=== PATIENT | male | born 1990 | race Caucasian/White ===

== ENCOUNTER 2021-06-10 17:25 | Inpatient (IN) | payer OTHER ==
[~2021-06-10] VITALS: Ht 175.3 cm; Wt 86.0 kg
[2021-06-10] MEDS ORDERED: IBUP-1022 PO (17:36)
[2021-06-10] MEDS ORDERED: ELIQ5TAB PO (17:36)
[2021-06-10] MEDS ORDERED: OCUF0.25 OU (17:39)
[2021-06-10] MEDS: OFLOXACIN 0.3 % (OCUFLOX) OPTH SOL 5ML OU SCH (21:00)
[2021-06-10] MEDS ORDERED: NS 1,000 ML IV ONE (21:50)
[2021-06-10] MEDS ORDERED: ACETAMINOPHEN 500 MG TAB PO ONE (21:55)
[2021-06-10 22:28] LABS: BASO # 0.1 10^3/uL (0.0-0.2); BASO % 0.6 % (0.0-1.0); EOS # 0.1 10^3/uL (0.0-0.5); HEMATOCRIT 48.1 % (42.0-52.0); HEMOGLOBIN 16.1 g/dl (13.5-17.5); LYMPH % 10.1 % (24.0-44.0); MEAN CORPUSCULAR HEMOGLOBIN 29.2 pg (27.0-33.0); MEAN CORPUSCULAR HGB CONC 33.5 g/dl (32.0-36.5); MEAN CORPUSCULAR VOLUME 87.3 fl (80.0-96.0); MONO # 0.9 10^3/uL (0.0-0.8); MONO % 9.5 % (2.0-8.0); NEUTROPHILS # 7.8 10^3/uL (1.5-8.5); NEUTROPHILS % 78.5 % (36.0-66.0); PLATELET COUNT, AUTOMATED 250 10^3/uL (150-450); RED BLOOD COUNT 5.51 10^6/uL (4.30-6.10); WHITE BLOOD COUNT 9.9 10^3/uL (4.0-10.0)
[2021-06-10] MEDS ORDERED: ISOVUE-370 76% 100ML VIAL As Ordered ONE (22:32)
[2021-06-10 22:39] LABS: INR 0.91; PROTHROMBIN TIME 12.7 SECONDS (12.7-14.5)
[2021-06-10 22:41] LABS: D-DIMER QUANT 1981.35 ng/ml (<500)
[2021-06-10 22:55] LABS: ALBUMIN 3.5 GM/DL (3.2-5.2); ALT/SGPT 143 U/L (12-78); BILIRUBIN,DIRECT 0.1 MG/DL (0.0-0.2); BILIRUBIN,TOTAL 0.6 MG/DL (0.2-1.0); CK-MB VALUE MASS < 1.0 NG/ML (<3.6); CPK CREATINE PHOSPHOKINASE 66 U/L (39-308); MB/CK RELATIVE INDEX 1.52 (< OR =4); NT-PRO BNP 64 PG/ML (<125); TOTAL PROTEIN 7.7 GM/DL (6.4-8.2); TROPONIN I < 0.02 NG/ML (< 0.10)
--- NOTE | 2021-06-10 23:27 | REPVR ---
PROCEDURE INFORMATION: Exam: CTA Chest with Contrast Exam date and time: 06/10/21 (10:39pm) Age: 31 years old Clinical indication: SOB. Angina. Pleuritic chest pain. History of pulmonary embolism. TECHNIQUE: Imaging protocol: Computed tomographic angiography of the chest with contrast. 3D rendering (Not supervised by radiologist): MIP and/or 3D reconstructed images were created by the technologist. Radiation optimization: All CT scans at this facility use at least one of these dose optimization techniques: automated exposure control; mA and/or kV adjustment per patient size (includes targeted exams where dose is matched to clinical indication); or iterative reconstruction. Contrast material: Isovue 370 Contrast volume: 75 ml Contrast route: IV COMPARISON: No relevant prior studies available FINDINGS: Pulmonary arteries: This is a slightly suboptimal bolus study for complete pulmonary embolism evaluation due to inadequate opacification of the pulmonary arteries and cardiac motion artifacts. The CT density of the enhanced main pulmonary artery = 181 HU. The desired level of enhancement is > 200 HU. Though suboptimal, bilateral pulmonary emboli are strongly suspected. Clot is suspected in the distal right main pulmonary artery, and in bilateral lower lobe arterial branches. Aorta: Unremarkable. No aortic aneurysm. No aortic dissection. Lungs: Small focal patchy infiltrate, anterior right lung base. No masses. Pleural spaces: Unremarkable. No pneumothorax. No pleural effusions. Heart: Unremarkable. No cardiomegaly. No pericardial effusion. Lymph nodes: Unremarkable. No enlarged lymph nodes. Bones/joints: Unremarkable. No acute fracture. Soft tissues: Unremarkable. Upper abdomen: Splenomegaly. IMPRESSION: Bilateral acute pulmonary emboli are likely. The study is not fully optimal, but bilateral emboli are likely visualized (see comments above). Small patchy infiltrate, anterior RLL. Splenomegaly. Electronically signed by: Faustina Lemus On 06/10/2021 23:26:43 PM
[2021-06-10] MEDS ORDERED: HOME MED LIST COMPLETE! XX SCH (23:40)
[2021-06-10] MEDS ORDERED: HEPARIN SOD (PORCINE) 5000UNITS/ML 1ML VIAL/SYRINGE IV ONE (23:40)
[2021-06-10] MEDS ORDERED: HEPARIN DRIP 25,000 UNITS in IV 1 EA IV SCH (23:40)
[2021-06-11 00:04] LABS: MONO REFLEX EBV COMP NEGATIVE (NEGATIVE)
[2021-06-11] MEDS ORDERED: ACETAMINOPHEN TAB 650MG DOSE (2X325MG) PO PRN (00:10)
[2021-06-11 00:16] LABS: HEMOGLOBIN A1c 10.4 %
--- NOTE | 2021-06-11 01:12 | REPVR ---
PROCEDURE INFORMATION: Exam: US Duplex Lower Extremity Veins, Bilateral Exam date and time: 06/10/2021 12:23 AM Age: 31 years old Clinical indication: Abnormal findings; Abnormal imaging study of limbs; CT chest; CT angio; Additional info: Pulmonary emboli, RO dvt TECHNIQUE: Imaging protocol: Real-time duplex ultrasound of the extremities with 2-D winters scale, color Doppler flow and spectral waveform analysis with image documentation. Complete exam focused on the bilateral lower extremity veins. COMPARISON: No relevant prior studies available. FINDINGS: Right deep veins: Unremarkable. The common femoral, femoral, proximal profunda femoral and popliteal veins are patent without thrombus. Normal Doppler waveforms. Normal compressibility and/or augmentation response. Right superficial veins: Saphenofemoral junction is patent without thrombus. Left deep veins: Left common femoral vein is patent. Nonocclusive thrombus in the left femoral in the mid and distal thigh and popliteal vein. Visualized left posterior tibial vein is patent. Left peroneal vein is not visualized. Left superficial veins: Saphenofemoral junction is patent without thrombus. Soft tissues: Unremarkable. IMPRESSION: 1. Nonocclusive thrombus in the left femoral in the distal thigh and popliteal vein 2. No evidence of deep vein thrombosis in the right lower extremity. Electronically signed by: Rey Flores On 06/11/2021 01:12:00 AM
--- NOTE | 2021-06-11 01:25 | HPEPDOC ---
General Date of Admission 06/11/21 Date of Service: Jun 11, 2021 Chief Complaint Cough History of Present Illness Mr. Ruiz is a 31-year-old male with significant history of ankle fracture August 2020 and subsequent DVT/PE in 2020 who arrives with complaints of shortness of breath. Patient reports that he has had URI type symptoms for the past 10 days and self treated until 5 days ago when he was noted to have some eye involvement and worsening head congestion. Patient reports at that time he was treated for an eye infection with eyedrops and that cleared up but unfortunately his congestion postnasal drip sore throat and cough worsened to cough, fever and shortness of breath. Patient notes right back pain as well which she attributes to coughing. 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 He reports that he has been around old and new insulation in this attic and it is very min patient did describe sensation of dizziness/lightheadedness with coughing fits. He has been taking NyQuil and ibuprofen at home to no avail. Home Medications Scheduled Enoxaparin Sodium (Lovenox) 40 Mg/0.4 Ml Syringe, 90 MG SC Q12H Insulin Detemir (Levemir Flextouch) 100 Unit/1 Ml Insuln.pen, 15 UNIT SC QPM Levofloxacin (Levofloxacin) 750 Mg Tablet, 750 MG PO DAILY Allergies Coded Allergies: No Known Allergies (Unverified , 06/10/21) Past Medical History Medical History DVT left leg and PE 2020 Surgical History Appendectomy 2006, left ankle fracture with hardware repair 2019 Family History Significant Family History: No pertinent family hx Denies family history of clotting disorders or DVT or PE Social History * Smoker: Denies Alcohol: rarely Drugs: denies Recent Travel/Sick Contacts: Reports: Recent travel (Patient visiting from [place] for work. 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 Dyspnea, Lt Headedness Gastrointestinal: Denies: Nausea, Vomiting, Abdominal Pain, Diarrhea Genitourinary: Denies: Dysuria, Frequency, Incontinence, Retention Hematologic: Denies: Bruising, Bleeding Excessively Musculoskeletal: Reports: Back Pain; Denies: Neck Pain, Joint Pain, Muscle Pain, Spasms Neurological: Denies: Weakness, Numbness, Change in speech, Confusion Psych: Reports: Mood Normal; Denies: Depression, Memory Issues Physical Examination General Exam: Positive: Alert, No Acute Distress Eye Exam: Positive: PERRLA, Conjunctiva & lids normal, EOMI; Negative: Sclera icteric ENT Exam: Positive: Atraumatic, Mucous membr. moist/pink, Pharynx Normal Neck Exam: Positive: Supple; Negative: JVD, thyromegaly Chest Exam: Positive: Normal air movement, Other (RLL diminished ) Heart Exam: Positive: Rate Normal, Regular Rhythm, Normal S1, Normal S2; Negative: Murmurs, Rubs Telemetry: Positive: Sinus, Tachycardia Abdomen Exam: Positive: Normal bowel sounds, Soft; Negative: Tenderness, Hepatospenomegaly Extremity Exam: Positive: Normal pulses; Negative: Clubbing, Cyanosis, Edema Skin Exam: Positive: Nl turgor and temperature; Negative: Breakdown, Lesion Neuro Exam: Positive: Normal Gait, Normal Speech, Cranial Nerves 3-12 NL, Reflexes 2+ Psych Exam: Positive: Mental status NL, Mood NL, Oriented x 3 Other physical findings tenderness R posterior ribs Vital Signs Vital Signs Date Time Temp Pulse Resp B/P (MAP) Pulse Ox O2 Delivery O2 Flow Rate FiO2 06/10/21 23:45 97.2 108 18 175/87 (116) 96 Room Air Laboratory Data Labs 24H Laboratory Tests 2 06/10/21 21:49: Immature Granulocyte % (Auto) 0.3, Neutrophils (%) (Auto) 78.5H, Lymphocytes (%) (Auto) 10.1L, Monocytes (%) (Auto) 9.5H, Eosinophils (%) (Auto) 1.0, Basophils (%) (Auto) 0.6, Neutrophils # (Auto) 7.8, Lymphocytes # (Auto) 1.0L, Monocytes # (Auto) 0.9H, Eosinophils # (Auto) 0.1, Basophils # (Auto) 0.1, Nucleated Red Blood Cells % (auto) 0.0, Prothrombin Time 12.7, Prothromb Time International Ratio 0.91, D-Dimer, Quantitative 1981.35H, Total Bilirubin 0.6, Direct Bilirubin 0.1, Aspartate Amino Transf (AST/SGOT) 32, Alanine Aminotransferase (ALT/SGPT) 143H, Alkaline Phosphatase 239H, Total Creatine Kinase 66, Creatine Kinase MB < 1.0, Creatine Kinase MB Relative Index 1.52, Troponin I < 0.02, UX-Uxz-Q-Type Natriuretic Peptide 64, Total Protein 7.7, Albumin 3.5, Albumin/Globulin Ratio 0.8, Monoscreen NEGATIVE 06/10/21 21:56: Estimated Mean Plasma Glucose 252H, Hemoglobin A1c 10.4 06/10/21 22:16: POC Glucose (Misc Panel) 277H, POC Sodium (Misc Panel) 138, POC Potassium (Misc Panel) 4.1, POC Chloride (Misc Panel) 102, POC Total CO2 (Misc Panel) 26.0, POC Blood Urea Nitrogen (Misc Panel 10, POC Ionized Calcium (Misc Panel) 5.2, POC Creatinine (Misc Panel) 0.9, POC Hematocrit (Misc Panel) 50.0 06/10/21 23:17: Lactic Acid Level 1.0 CBC/BMP Laboratory Tests 06/10/21 21:49 Microbiology Microbiology 06/10/21 Respiratory Virus Panel (PCR) (MARGARETTE) - Final, Complete 06/10/21 Blood Culture, Received Pending 06/10/21 Blood Culture, Received Pending Assessment/Plan 1. Right lower lobe pneumonia: Respiratory panel negative CT positive small right lower lobe infiltrate. Monitor respiratory status; Oxygen as needed to keep saturations greater than 93% Empiric coverage with Levaquin Symptomatic/supportive care-as needed breathing treatments and Mucinex A.m. labs, urine Legionella/pneumonia 2. Left lower extremity DVT and likely bilateral PE: CT chest questionable given suboptimal exam but likely bilateral PE. Ultrasound positive nonocclusive thrombus left femoral in the distal thigh and popliteal vein Patient recently completed Eliquis 6 months. -Bedrest -Heparin drip -Clotting factor lab work sent if lab can send blood from prior to initiation of heparin drip. -A.m. labs. -Echo given bilateral PE. -Consider OAC; for long-term Eliquis versus agent change such as Xarelto 3. Hyperglycemia: Patient denies history of diabetes however patient with elevated fasting glucose. A1c was completed and did show elevation at 10.4. Plan for blood glucose monitoring ACHS, Sliding scale insulin. New diabetic teaching. Consider oral antiglycemic's for discharge once patient is outside of contrast from CT risks. 4. Transaminitis: In setting of infection. Plan for hydration and a.m. labs. During course of admission patient did complain of nausea and increased right posterior rib pain. This may be referred pain of the gallbladder- will opt for CT abdomen pelvis without contrast. 5. Splenomegaly: As noted on CT. Patient denies any history. [place] negative. EBV send out. Consider differential CODE STATUS full code Disposition planning: Anticipate 2 midnight stay. Patient has to leave for work on -he will be traveling via plane to [place]. He will require documentation if unable to travel/work notice. Plan / VTE VTE Prophylaxis Ordered?: Yes JENNIFRE WEN NP Jun 11, 2021 00:18 EMILY MURRY MD Jun 18, 2021 02:41
[2021-06-11] MEDS: LevoFLOXacin IV 750 MG in IV 1 EA IV SCH (02:46)
[2021-06-11] MEDS: traMADol 50 MG TAB PO PRN ×2 (02:46→10:06)
[2021-06-11] MEDS ORDERED: MORPHINE 2 MG/ML 1ML VIAL (J2270) IV PRN ×2 (04:45→09:50)
[2021-06-11] MEDS: ONDANSETRON 4MG/2ML VIAL IV PRN ×2 (04:56→11:39)
[2021-06-11] MEDS ORDERED: IPRATROPIUM 0.5MG/ALBUTEROL 2.5MG INH SOL UD 3ML (DUONEB) NEB PRN (05:55)
[2021-06-11] MEDS: DICLOFENAC EPOLAMINE 1.3 % PATCH TOP SCH ×2 (06:26→17:41)
[2021-06-11] MEDS ORDERED: GLUCOSE 4GM CHEW TABLET PO PRN (06:30)
[2021-06-11] MEDS ORDERED: DEXTROSE 50% 50 ML SYRINGE IV PRN (06:30)
[2021-06-11] MEDS ORDERED: GLUCAGON INJ 1MG VIAL SC PRN (06:30)
[2021-06-11] MEDS ORDERED: ELIQ5TAB4 PO (07:27)
--- NOTE | 2021-06-11 07:31 | REPVR ---
PROCEDURE INFORMATION: Exam: CT Abdomen And Pelvis Without Contrast Exam date and time: 06/11/2021 7:05 AM Age: 31 years old Clinical indication: Nausea, elevated lfts, R back pain TECHNIQUE: Imaging protocol: Computed tomography of the abdomen and pelvis without contrast. Radiation optimization: All CT scans at this facility use at least one of these dose optimization techniques: automated exposure control; mA and/or kV adjustment per patient size (includes targeted exams where dose is matched to clinical indication); or iterative reconstruction. COMPARISON: CT ANGIO CHEST 06/10/2021 10:38 PM FINDINGS: Limitations: Limited by motion artifact. Lungs: Consolidation in the right middle lobe. Ground-glass opacity in the posterior basal right lower lobe. Lung nodule in the posterior basal left lower lobe measuring 7 mm. (Series 201, image 10). Liver: Fatty infiltration of the liver. Gallbladder and bile ducts: Normal. No calcified stones. No ductal dilation. Pancreas: Normal. No ductal dilation. Spleen: Moderate splenomegaly. Adrenal glands: Normal. No mass. Kidneys and ureters: Normal. No hydronephrosis. Stomach and bowel: Moderate stool in the colon. No abnormal bowel dilatation. No abnormal bowel wall thickening. Negative for colonic diverticulitis. Appendix: Status post appendectomy. Intraperitoneal space: Unremarkable. No free air. No significant fluid collection. Vasculature: Unremarkable. No abdominal aortic aneurysm. Lymph nodes: Multiple small mesenteric nodes. Urinary bladder: Unremarkable as visualized. Reproductive: Prostate is normal in size. Bones/joints: Mild degenerative changes of hips bilaterally. Soft tissues: Small umbilical hernia containing fat. There is no evidence of strangulation. IMPRESSION: 1. No CT findings to suggest source of right flank pain in the abdomen. 2. Fatty infiltration of the liver. 3. Moderate splenomegaly. 4. Ground-glass opacities and consolidations as described. See recent CTA chest report. 5. Lung nodule in the left lower lobe. If the patient does not have known cancer, follow up should be based on clinical information because of the low risk of cancer in this age group. (Reference: Jarek) REFERENCES: Jarek Vargas et al. Guidelines for Management of Incidental Pulmonary Nodules Detected on CT Images: From the Fleischner Society 2017. Radiology. 2017;284(1):228-243. Electronically signed by: Rey Flores On 06/11/2021 07:31:26 AM
[2021-06-11] MEDS: HumaLOG INSULIN (NovoLOG) PER UNIT SC SCH ×4 (07:54→20:35)
[2021-06-11 08:11] LABS: BASO # 0.1 10^3/uL (0.0-0.2); BASO % 0.4 % (0.0-1.0); EOS % 0.1 % (0.0-3.0); HEMATOCRIT 45.2 % (42.0-52.0); HEMOGLOBIN 14.6 g/dl (13.5-17.5); LYMPH # 0.8 10^3/uL (1.5-5.0); MEAN CORPUSCULAR HEMOGLOBIN 28.5 pg (27.0-33.0); MEAN CORPUSCULAR HGB CONC 32.3 g/dl (32.0-36.5); MEAN CORPUSCULAR VOLUME 88.1 fl (80.0-96.0); MONO # 1.2 10^3/uL (0.0-0.8); NEUTROPHILS # 9.6 10^3/uL (1.5-8.5); NEUTROPHILS % 82.1 % (36.0-66.0); PLATELET COUNT, AUTOMATED 237 10^3/uL (150-450); RED BLOOD COUNT 5.13 10^6/uL (4.30-6.10); WHITE BLOOD COUNT 11.7 10^3/uL (4.0-10.0)
[2021-06-11 08:30] LABS: BLOOD UREA NITROGEN 11 MG/DL (7-18); CALCIUM LEVEL 9.2 MG/DL (8.5-10.1); CARBON DIOXIDE LEVEL 24 MEQ/L (21-32); CHLORIDE LEVEL 103 MEQ/L (98-107); CREATININE FOR GFR 1.02 MG/DL (0.70-1.30); GLOMERULAR FILTRATION RATE > 60.0 (>60); GLUCOSE, FASTING 254 MG/DL (70-100); NT-PRO BNP 39 PG/ML (<125); SODIUM LEVEL 137 MEQ/L (136-145)
[2021-06-11 08:33] LABS: AMYLASE 24 U/L (25-115); LIPASE 63 U/L (73-393)
[2021-06-11] MEDS ORDERED: HEPARIN DRIP 25,000 UNITS in IV 1 EA IV SCH (09:10)
[2021-06-11] MEDS ORDERED: HEPARIN SOD (PORCINE) 5000UNITS/ML 1ML VIAL/SYRINGE IV PRN (09:10)
[2021-06-11] MEDS: LACTOBACILLUS ACIDOPHILUS CAP (BACID) PO SCH (09:34)
[2021-06-11] MEDS: OFLOXACIN 0.3 % (OCUFLOX) OPTH SOL 5ML OU SCH ×3 (09:35→20:35)
[2021-06-11] MEDS: ENOXAPARIN 100MG/1ML SYRINGE (J1650 PER 10MG) SC SCH ×2 (09:35→20:35)
[2021-06-11] MEDS: SIMETHICONE 80MG CHEW TAB PO PRN (10:39)
[2021-06-11] MEDS: ACETAMINOPHEN 500 MG TAB PO SCH ×3 (11:36→20:37)
[2021-06-11 14:18] VITALS: BP 135/70
[2021-06-11] MEDS: IBUPROFEN 600MG TAB PO PRN (15:17)
[2021-06-11 15:30] VITALS: BP 171/89
[2021-06-11] MEDS ORDERED: ELIQ5TAB PO (15:58)
--- NOTE | 2021-06-11 16:11 | IPNPDOC ---
Subjective Date Seen The patient was seen on 06/11/21. Subjective Chief Complaint/HPI Mr. Ruiz is a 31 year old male with history of ankle fracture in 08/2020 and subsequent DVT?PE who presents with dyspnea and found to have another PE and DVT. This morning, he still feels short of breath. He also reports of flank pain which is most likely from the PE. Patient tells me that in the past, he was on Eliquis. I sent the Eliquis starter pack and his insurance covered it, but it would cost $103. Will try to send again, but not the starter pack. Objective Physical Examination General Exam: Positive: Alert, Cooperative Eye Exam: Positive: EOMI; Negative: Sclera icteric ENT Exam: Positive: Atraumatic Neck Exam: Positive: Supple Chest Exam: Positive: Clear to auscultation Heart Exam: Positive: Tachycardic, Regular Rhythm Abdomen Exam: Positive: Normal bowel sounds, Soft; Negative: Tenderness Extremity Exam: Negative: Edema Neuro Exam: Positive: Normal Speech Psych Exam: Positive: Mental status NL, Mood NL Assessment /Plan Assessment Mr. Ruiz is a 31 year old male with history of ankle fracture in 08/2020 and subsequent DVT?PE who presents with dyspnea and found to have another PE and DVT. Patient may need to be on life long anticoagulation vs a longer coarse of anticoagulation. Otherwise, will start with Lovenox since it is rapid acting and transition to orals if appropriate. Plan/VTE VTE Prophylaxis Ordered?: Yes Plan 1. Bilateral acute bilateral acute left lower extremity DVT May either be a continuation of his previous VTE or recurrence of VTE Hypercoagulable work-up pending Patient may need to be on a longer course of anticoagulation Sent Eliquis starter pack to pharmacy and it cost $103. We will try sending Eliquis as pills rather than started back Continue with full dose Lovenox Pain control with scheduled acetaminophen and as needed ibuprofen 2. Right lower lobe pneumonia Procalcitonin borderline at 0.25 Continue levofloxacin day 1 3. Diabetes mellitus Patient denies history of diabetes HbA1c elevated at 10.4 Functional insulin Patient will benefit from diabetic teaching 4. DVT prophylaxis On full dose Lovenox Disposition: Pending clinical improvement. Patient does not have any oxygen requirements. If pain is controlled, can consider discharge on oral meds. Eliquis sent to pharmacy to determine cost. VS, I&O, 24H, Fishbone Vital Signs/I&O Vital Signs Date Time Temp Pulse Resp B/P (MAP) Pulse Ox O2 Delivery O2 Flow Rate FiO2 06/11/21 15:30 98.0 113 20 171/89 (116) 90 Room Air Laboratory Data 24H LABS Laboratory Tests 2 06/10/21 21:49: Immature Granulocyte % (Auto) 0.3, Neutrophils (%) (Auto) 78.5H, Lymphocytes (%) (Auto) 10.1L, Monocytes (%) (Auto) 9.5H, Eosinophils (%) (Auto) 1.0, Basophils (%) (Auto) 0.6, Neutrophils # (Auto) 7.8, Lymphocytes # (Auto) 1.0L, Monocytes # (Auto) 0.9H, Eosinophils # (Auto) 0.1, Basophils # (Auto) 0.1, Nucleated Red Blood Cells % (auto) 0.0, Prothrombin Time 12.7, Prothromb Time International Ratio 0.91, D-Dimer, Quantitative 1981.35H, Total Bilirubin 0.6, Direct Bilirubin 0.1, Aspartate Amino Transf (AST/SGOT) 32, Alanine Aminotransferase (ALT/SGPT) 143H, Alkaline Phosphatase 239H, Total Creatine Kinase 66, Creatine Kinase MB < 1.0, Creatine Kinase MB Relative Index 1.52, Troponin I < 0.02, BS-Ogu-P-Type Natriuretic Peptide 64, Total Protein 7.7, Albumin 3.5, Albumin/Globulin Ratio 0.8, Monoscreen NEGATIVE 06/10/21 21:56: Estimated Mean Plasma Glucose 252H, Hemoglobin A1c 10.4 06/10/21 22:16: POC Glucose (Misc Panel) 277H, POC Sodium (Misc Panel) 138, POC Potassium (Misc Panel) 4.1, POC Chloride (Misc Panel) 102, POC Total CO2 (Misc Panel) 26.0, POC Blood Urea Nitrogen (Misc Panel 10, POC Ionized Calcium (Misc Panel) 5.2, POC Creatinine (Misc Panel) 0.9, POC Hematocrit (Misc Panel) 50.0 06/10/21 23:17: Lactic Acid Level 1.0 06/11/21 00:13: 06/11/21 07:48: Immature Granulocyte % (Auto) 0.4, Neutrophils (%) (Auto) 82.1H, Lymphocytes (%) (Auto) 7.0L, Monocytes (%) (Auto) 10.0H, Eosinophils (%) (Auto) 0.1, Basophils (%) (Auto) 0.4, Neutrophils # (Auto) 9.6H, Lymphocytes # (Auto) 0.8L, Monocytes # (Auto) 1.2H, Eosinophils # (Auto) 0.0, Basophils # (Auto) 0.1, Nucleated Red Blood Cells % (auto) 0.0, Activated Partial Thromboplast Time 38.3, Bedside Glucose (Misc Panel) 251H, Anion Gap 10, Glomerular Filtration Rate > 60.0, Lactic Acid Level 1.8, Calcium Level 9.2, EB-Ikf-C-Type Natriuretic Peptide 39, Amylase Level 24L, Lipase 63L, Procalcitonin 0.25 06/11/21 13:02: Activated Partial Thromboplast Time 42.7H 06/11/21 13:23: Bedside Glucose (Misc Panel) 315H CBC/BMP Laboratory Tests 06/10/21 21:49 06/11/21 07:48 Microbiology Microbiology 06/10/21 Respiratory Virus Panel (PCR) (MARGARETTE) - Final, Complete 06/10/21 Blood Culture, Received Pending 06/10/21 Blood Culture, Received Pending MK PIERCE DO Jun 11, 2021 16:11
[2021-06-11] MEDS ORDERED: XARE15TA PO (17:11)
[2021-06-11 18:00] VITALS: BP 130/82
--- NOTE | 2021-06-11 19:28 | ECGEPIP ---
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
[2021-06-11] MEDS ORDERED: guaiFENesin ER 600 MG TAB PO ONE (20:55)
[2021-06-11] MEDS: IPRATROPIUM 0.5MG/ALBUTEROL 2.5MG INH SOL UD 3ML (DUONEB) NEB SCH (21:16)
[2021-06-11 22:00] VITALS: BP 140/90
--- NOTE | 2021-06-11 22:01 | IPNPDOC ---
Text Note Date of Service The patient was seen on 06/11/21. NOTE Significant event. Patient seen at bedside in no acute distress but notably ill appearance. He is tolerating room air 94% mildly tachycardic heart rate 103, regular rhythm, re spiratory rate 20. Normotensive. He has noticeable rales bilateral lower lobes. Afebrile. Patient reports that he is unsure if his chest was hurting yesterday as he did experience flank pain and that could have been overshadowing the chest pain. As of now flank pain much improved but patient describes anterior chest pain 6 out of 10 described as tightness/sharpness. Also pleuritic increasing pain 8 out of 10 with inspiration. Pain is somewhat reproducible. He denies activity as exacerbating factor. No history of heart disease for himself or in his immediate family. Chest Pain patient with probable bilateral PEs: Echo completed given CT did not mention heart strain, but report not available yet: Opted for ekg, trop with exam. EKG reassuring. Trop pending. Given pleuritic in nature-likely costochondritis given clinical picture and patient coughing. Plan for ibuprofen, Mucinex, scheduled duonebs, IS. Consider steroids although patient at risk for hyperglycemia. Additional treatment plan discussion with patient of CT scan finding of LLL pulmonary nodule. Again, patient is non-smoker with no cancer history and no immediate cancer history in his family. He was encouraged to discuss the nodule with his PCP for best follow-up intervals and to be aware of this in future. He verbalized understanding Also, discussed patient's diabetic diagnosis given his elevated A1c. He reports that he does have a family history of grandfather with diabetes. Patient denies any polydipsia, polyphagia or polyuria. He does not report any A1c checks in the past with his PCP that he is aware of. His blood glucose is running in the 300 this evening. His diet had not been consistent carbohydrates and he is ill as noted this may be contributing. Did change to consistent carbohydrate diet. Given goal for patient to have successful discharge encourage diabetic teaching and written materials. Additionally, will begin Levemir 15 units subcu tonight with frequent Accu-Cheks to determine patient response. Given A1c greater than 8 patient discharge planning for insulin. 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 Will continue to monitor and adjust care plan accordingly. VS,Fishbone, I+O VS, Fishbone, I+O Laboratory Tests 06/10/21 21:49 06/11/21 07:48 Vital Signs Date Time Temp Pulse Resp B/P (MAP) Pulse Ox O2 Delivery O2 Flow Rate FiO2 06/11/21 18:00 97.4 93 20 130/82 (98) 94 Room Air JENNIFER WEN NP Jun 11, 2021 20:58
[2021-06-11] MEDS: LEVEMIR (INSULIN DETEMIR) 1 UNITS/0.01ML SC SCH (22:24)
[2021-06-12] MEDS: LevoFLOXacin IV 750 MG in IV 1 EA IV SCH (01:13)
[2021-06-12] MEDS: traMADol 50 MG TAB PO PRN ×2 (01:14→16:56)
[2021-06-12] MEDS: SIMETHICONE 80MG CHEW TAB PO PRN ×2 (01:17→11:50)
[2021-06-12] MEDS: ONDANSETRON 4MG/2ML VIAL IV PRN (01:35)
[2021-06-12] MEDS ORDERED: MORPHINE 2 MG/ML 1ML VIAL (J2270) IV ONE (01:45)
[2021-06-12] MEDS ORDERED: METOCLOPRAMIDE INJ 10MG/2ML VIAL (J2765 PER 1) IV PRN (01:45)
[2021-06-12] MEDS ORDERED: carisoprodoL 350 MG TAB PO PRN (02:10)
[2021-06-12 02:19] VITALS: BP 175/121
--- NOTE | 2021-06-12 03:50 | IPNPDOC ---
Text Note Date of Service The patient was seen on 06/12/21. NOTE Significant event. Asked to see pt given severe posterior right rib/flank pain. He is having difficulty taking deep breaths and actually desatted to 85% on RA requiring 2 L nasal cannula placement. He reports that he had been stretching out his pain medication. He endorses "spasming". Denies any hx of trauma to back or side. CT review mentioned no kidney stones. He is diminished right lower lobe and notably not taking deep breaths d/t pain reportedly. He is tachycardic 115 and hypertensive 172/111. 93% 2LNC RR26. He is physically burping and appears ill. He is exquisitely tender to touch of the right posterior rib however no deformity or rash appreciated. He is flushed in complexion generalized and warm to touch. Patient given morphine 4 mg in total. Given known RLL infiltrate and increased oxygen demand will obtain AM interval chest x-ray for now. Chest x-ray obtained and patient given Reglan. Patient thankfully soon after relaxed; likely morphine kicked in and he was able to fall asleep however he does remain tachycardic, on 2L NC. Pending x-ray for further interventions. WCTM. VS,Fishbone, I+O VS, Fishbone, I+O Laboratory Tests 06/11/21 07:48 Vital Signs Date Time Temp Pulse Resp B/P (MAP) Pulse Ox O2 Delivery O2 Flow Rate FiO2 06/12/21 02:56 105 24 96 Nasal Cannula 2.0 06/12/21 02:19 175/121 (139) 06/11/21 22:00 98.4 I&O- Last 24 Hours up to 6 AM 06/12/21 06:00 Intake Total 655 ml Output Total 1350 ml Balance -695 ml JENNIFER WEN NP Jun 12, 2021 03:04
--- NOTE | 2021-06-12 04:51 | REPVR ---
PROCEDURE INFORMATION: Exam: XR Chest Exam date and time: 06/12/2021 2:31 AM Age: 31 years old Clinical indication: Shortness of breath; Additional info: Inc o2 demand TECHNIQUE: Imaging protocol: XR of the chest. Views: 1 view. COMPARISON: CT ANGIO CHEST 06/10/2021 10:38 PM FINDINGS: Lungs: There is decreased inflation of the lungs. No focal infiltrates. Pleural spaces: Unremarkable. No pleural effusion. No pneumothorax. Heart/Mediastinum: Unremarkable. No cardiomegaly. Bones/joints: Unremarkable. IMPRESSION: Negative poor inspiratory chest. Electronically signed by: Huber Duenas On 06/12/2021 04:50:46 AM
[2021-06-12 06:12] VITALS: BP 160/94; O2SAT 97
[2021-06-12 06:23] LABS: BASO % 0.3 % (0.0-1.0); EOS % 0.3 % (0.0-3.0); HEMATOCRIT 42.2 % (42.0-52.0); HEMOGLOBIN 13.8 g/dl (13.5-17.5); LYMPH # 0.8 10^3/uL (1.5-5.0); MEAN CORPUSCULAR HEMOGLOBIN 28.9 pg (27.0-33.0); MEAN CORPUSCULAR HGB CONC 32.7 g/dl (32.0-36.5); MEAN CORPUSCULAR VOLUME 88.5 fl (80.0-96.0); MONO % 8.8 % (2.0-8.0); NEUTROPHILS # 9.6 10^3/uL (1.5-8.5); NEUTROPHILS % 83.2 % (36.0-66.0); PLATELET COUNT, AUTOMATED 234 10^3/uL (150-450); RED BLOOD COUNT 4.77 10^6/uL (4.30-6.10); WHITE BLOOD COUNT 11.5 10^3/uL (4.0-10.0)
[2021-06-12] MEDS: IBUPROFEN 600MG TAB PO PRN ×2 (06:36→11:50)
[2021-06-12 06:58] LABS: ALBUMIN 2.8 GM/DL (3.2-5.2); ALT/SGPT 96 U/L (12-78); BILIRUBIN,TOTAL 0.6 MG/DL (0.2-1.0); BLOOD UREA NITROGEN 16 MG/DL (7-18); CALCIUM LEVEL 9.5 MG/DL (8.5-10.1); CARBON DIOXIDE LEVEL 26 MEQ/L (21-32); CHLORIDE LEVEL 100 MEQ/L (98-107); CHOLESTEROL LEVEL 245 MG/DL (<200); CHOLESTEROL RISK RATIO 6.282 (<5); CREATININE FOR GFR 0.91 MG/DL (0.70-1.30); GLOMERULAR FILTRATION RATE > 60.0 (>60); GLUCOSE, FASTING 200 MG/DL (70-100); HDL CHOLESTEROL 39 MG/DL (>40); LDL CHOLESTEROL 129 MG/DL (<100); MAGNESIUM LEVEL 2.3 MG/DL (1.8-2.4); NON-HDL-C 206 MG/DL; POTASSIUM SERUM 4.8 MEQ/L (3.5-5.1); SODIUM LEVEL 135 MEQ/L (136-145); TOTAL PROTEIN 7.1 GM/DL (6.4-8.2); TRIGLYCERIDES LEVEL 384 MG/DL (<150)
[2021-06-12] MEDS: IPRATROPIUM 0.5MG/ALBUTEROL 2.5MG INH SOL UD 3ML (DUONEB) NEB SCH ×3 (07:15→21:58)
[2021-06-12] MEDS: HumaLOG INSULIN (NovoLOG) PER UNIT SC SCH ×4 (08:58→20:39)
[2021-06-12] MEDS: LACTOBACILLUS ACIDOPHILUS CAP (BACID) PO SCH (08:58)
[2021-06-12] MEDS: ACETAMINOPHEN 500 MG TAB PO SCH ×3 (08:58→20:57)
[2021-06-12] MEDS: OFLOXACIN 0.3 % (OCUFLOX) OPTH SOL 5ML OU SCH ×3 (08:59→20:58)
[2021-06-12] MEDS: ENOXAPARIN 100MG/1ML SYRINGE (J1650 PER 10MG) SC SCH ×2 (08:59→21:00)
[2021-06-12 10:30] VITALS: O2SAT 88
--- NOTE | 2021-06-12 11:51 | IPN ---
PROGRESS NOTE DATE: 06/12/2021 SUBJECTIVE: Patient complains of 10/10 pleuritic chest pain of the right flank, had a temperature of 100.4 this morning at 6:00 a.m. and 101.2 yesterday. Currently being treated for possible pneumonia with Levaquin for patchy infiltrate noted on CT chest. Patient denies any palpitations, lightheadedness or dizziness, and has not been out of bed. He denies any lower extremity pain. PHYSICAL EXAMINATION: VITAL SIGNS: Temperature 100.4, pulse 116 sinus, respiratory rate 40, blood pressure 160/90 and 96% on 2 liters nasal cannula. GENERAL: Awake, alert, oriented, no respiratory distress, cyanosis or use of respiratory accessory muscles. No pallor or icterus. No JVD. No thyromegaly. No cervical lymphadenopathy. LUNGS: Clear to auscultation. No wheezes or rales. HEART: S1, S2, sinus rhythm, but tachycardic. ABDOMEN: Soft, nontender, non-distended. Positive bowel sounds. EXTREMITIES: No cyanosis or clubbing. LABORATORY DATA/IMAGING STUDIES/MICROBIOLOGY: Have been reviewed. ASSESSMENT AND PLAN: This is a 31-year-old male admitted on 06/11/2021 with prior history of PE, DVT, status post ankle fracture August 2020, he has been on Eliquis for six months and compliant. He follows with a taker out in [place] where he resides. Patient travels for work and usually takes airplanes. He is due to go to [place] after this hospital admission. Patient says that he is compliant with his Eliquis. As an outpatient, he currently complains of pleuritic chest pain. Denies any lightheadedness when he ambulates from bed to the bathroom. IMPRESSION: 1. Recurrent DVT/PE: Left lower extremity DVT and bilateral PE, VQ scan today. Currently on Lovenox injections. Customer Relations Consultant/oncologist with Dr. Fernandez has been consulted to determine the reason for patient's recurrent DVT and PE despite therapeutic levels of Eliquis, which he has completed for the past six months. Patient saw a taker out in [place]; obtain records from there. Defer to taker out if IVC filter is recommended due to risk factor of flying for his work. 2. Right lower lobe pneumonia community acquired: Currently on Levaquin with leukocytosis, tachycardia and low-grade fevers. 3. Hyperglycemia: Maybe reactive, A1C is 10.4, patient has new onset type 2 diabetes, currently on Levemir Insulin. Dietitian consult for new diabetic teaching. Teach about injections with Levemir Insulin. DISPOSITION: 1-2 days depending on pain control and recommendations from taker out. MTDD
--- NOTE | 2021-06-12 13:22 | REP ---
INDICATION: suboptimal ct. COMPARISON: CT chest 06/10/2021. TECHNIQUE/RADIOTRACER AND DOSE: Following the intravenous administration of 5.5 mCi technetium 99 M tagged MAA and the inhalation of 1.0 mCi technetium 99 M DTPA aerosol, multiple images of the lung carlin are obtained in various projections. FINDINGS: A large segmental perfusion defect is seen in the lingula and also in the superior segment of the left lower lobe, with normal appearing ventilation. There are 2 matching segmental ventilation and perfusion defects in the right lower lobe. IMPRESSION: High probability of pulmonary embolism. <Electronically signed by Brenden Cormier > 06/12/21 [id number]
[2021-06-12 14:00] VITALS: BP 142/57
[2021-06-12 14:12] LABS: DRVV SCREEN 53.9 SEC
[2021-06-12 14:20] LABS: PTT LUPUS TYPE ANTICOAG SCREEN 1.4 (0-1.2)
[2021-06-12 14:29] LABS: NORMALIZED RATIO 1.4 (0.00-1.20)
[2021-06-12 15:12] LABS: EBV AB TO NUCLEAR ANTIGEN <18.0 U/mL (0.0-17.9); EBV VIRAL CAPSID AG IgM <36.0 U/mL (0.0-35.9)
[2021-06-12 18:00] VITALS: BP 135/90
--- NOTE | 2021-06-12 18:12 | ECGEPIP ---
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
--- NOTE | 2021-06-12 20:14 | CR.PDOC ---
General Date of Consultation: Jun 12, 2021 Referring Provider: GERMÁN RODGERS MD Attending Physician: TOMÁS WITT MD Consultation REASON FOR CONSULTATION/CHIEF COMPLAINT: [Bilateral DVT and recurrent pulmonary embolism]. HISTORY OF PRESENT ILLNESS: [I had the pleasure of seeing Mr. Elliott Ruiz in consideration for bilateral pulmonary embolism and DVT. As you know Mr. Ruiz is a 31-year-old white gentleman who is working in [employer] from [place]. He has history of DVT initially discovered in August 2020 when he had fracture of the left ankle and had surgery and was given surgical boots. Patient underwent physical therapy. During that time in November 2020 he was found to have bilateral pulmonary embolism and left-sided DVT of the leg. He was started on Eliquis and he took it for 6 months. He stopped Eliquis after 6 months which was about a month ago. More recently a few days ago he developed some cough and shortness of breath and it was hurting to breathe. He ended up in the emergency room and D-dimer was found to be high [place] 1981. CT angiogram revealed bilateral pulmonary embolism. Patient is currently on anticoagulation with Lovenox 100 mg subcu twice daily. His main issue is pain in the left chest for which he is getting morphine. Patient hypercoagulable work-up was sent out DRVVT was 1.4 more consistent with presence of antiphospholipid antibodies. Hexagonal phospholipid confirmatory test is pending further confirmation of antiphospholipid antibodies. Other hypercoagulable work-up sent out including protein C and protein S activity, Antithrombin 3 antigen and Antithrombin III activity and factor V Leiden mutation results of which are pending. Patient was diagnosed to have diabetes mellitus and is being treated with insulin. ALLERGIES: No known drug allergies HOME MEDICATIONS: Please see below. PAST MEDICAL HISTORY: 1. [History of DVT and pulmonary embolism in August 2020]. He has been otherwise in good health. He has not been on any medication other than Eliquis which stopped a month ago. PAST SURGICAL HISTORY: 1. [Appendectomy 2006] 2. 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 HEENT: [No headaches no runny nose]. CARDIOVASCULAR: [No history of effort angina. Pain in the right lateral chest due to pulmonary embolism]. RESPIRATORY: [Difficulty in breathing due to severe right-sided chest pain]. GENITOURINARY: [No urinary complain]. MUSCULOSKELETAL: [No pain in the muscles]. GASTROINTESTINAL: [Denies nausea vomiting abdominal pain or diarrhea]. SKIN: [No rashes]. NEUROLOGICAL: [No focal neurological deficit or seizures]. PSYCHIATRIC: [Denies depression]. ENDOCRINE: [Just diagnosed diabetes during this admission]. HEMATOLOGIC/LYMPHATIC: [Had DVT and pulmonary embolism recently]. ALLERGIC/IMMUNOLOGIC: [No known drug allergies]. PHYSICAL EXAMINATION: VITAL SIGNS: Please see below. GENERAL APPEARANCE: [Healthy looking gentleman looks distressed because of pain in the right chest]. HEENT: [WNL EOMI oral cavity clear without mucositis or thrush]. RESPIRATORY: [Local tenderness right posterior chest wall no crackles]. CARDIOVASCULAR: [RRR normal S1-S2]. ABDOMEN: [Abdomen soft bowel sounds present no hepatosplenomegaly]. EXTREMITIES: [No pedal edema or calf tenderness]. NEUROLOGICAL: [No focal neurological deficit]. PSYCHIATRIC: [Looks composed and not depressed]. LABORATORY DATA: Please see below. ASSESSMENT/PLAN: Mr. Ruiz is a 31 years old white gentleman who has history of ankle fracture in August 2020 and had surgery. His left leg was immobilized in a surgery boot. In November 2020 developed DVT and pulmonary embolism. He has been on Eliquis for 6 months and a month ago he stopped Eliquis. Recently he developed chest pain cough and ended up in the emergency room. Patient D-dimer was found to be high and was found to have bilateral pulmonary emboli. Currently patient is on Lovenox 100 mg subcu twice daily. Patient hypercoagulable work-up has been drawn. His hypercoagulable work-up is significant for 4 presence of antiphospholipid antibody with high DRVVT although confirmatory test for antiphospholipid antibody in the form of hexagonal phospholipid is pending. Patient is currently on Lovenox. He developed DVT while he was off Eliquis for a month or more. If he is confirmed to have presence of antiphospholipid antibodies then Eliquis or Xarelto would not be a good choice for anticoagulation and in that case Coumadin is best way to go or Lovenox 100 mg subcu twice daily which may not be feasible on long-term basis. Patient has been on Eliquis for 6 months without any evidence of DVT during that time. Patient does not want to start Coumadin since he is a frequent traveler and he feels that he will be unable to check out INR. In that case he may take Eliquis at his discretion since he feels that he will not be able to check out INR frequently. I will wait for the result of confirmation of antiphospholipid antibodies and depending on patient's desire and previous experience with Eliquis he may be restarted on Eliquis on long-term basis. Patient needs to be followed at our office and I would suggest to make the appointment with us within a week of his discharge. Vital Signs/I&O Vital Signs Date Time Temp Pulse Resp B/P (MAP) Pulse Ox O2 Delivery O2 Flow Rate FiO2 06/12/21 18:00 98.8 95 18 135/90 (105) 96 Nasal Cannula 1.0 I&O- Last 24 Hours up to 6 AM 06/12/21 06:00 Intake Total 855 ml Output Total 1350 ml Balance -495 ml Laboratory Data Labs 24H Laboratory Tests 2 06/11/21 20:32: Bedside Glucose (Misc Panel) 313H 06/11/21 21:03: Troponin I < 0.02 06/11/21 23:20: Urine Color YELLOW, Urine Appearance CLEAR, Urine pH 5.0, Urine Specific Gladys 1.035, Urine Protein 3+H, Urine Glucose (UA) 3+H, Urine Ketones NEGATIVE, Urine Blood 1+H, Urine Nitrite NEGATIVE, Urine Bilirubin NEGATIVE, Urine Urobilinogen 0.2, Urine Leukocyte Esterase NEGATIVE, Urine WBC (Auto) 1, Urine RBC (Auto) 0, Urine Hyaline Casts (Auto) 0, Urine Bacteria (Auto) NEGATIVE, Urine Squamous Epithelial Cells 0, Urine Sperm (Auto) 06/12/21 00:43: Bedside Glucose (Misc Panel) 208H 06/12/21 05:41: Immature Granulocyte % (Auto) 0.4, Neutrophils (%) (Auto) 83.2H, Lymphocytes (%) (Auto) 7.0L, Monocytes (%) (Auto) 8.8H, Eosinophils (%) (Auto) 0.3, Basophils (%) (Auto) 0.3, Neutrophils # (Auto) 9.6H, Lymphocytes # (Auto) 0.8L, Monocytes # (Auto) 1.0H, Eosinophils # (Auto) 0.0, Basophils # (Auto) 0.0, Nucleated Red Blood Cells % (auto) 0.0, Anion Gap 9, Glomerular Filtration Rate > 60.0, Lactic Acid Level 1.1, Calcium Level 9.5, Magnesium Level 2.3, Total Bilirubin 0.6, Aspartate Amino Transf (AST/SGOT) 38H, Alanine Aminotransferase (ALT/SGPT) 96H, Alkaline Phosphatase 200H, Total Protein 7.1, Albumin 2.8L, Albumin/Globulin Ratio 0.7, Triglycerides Level 384H, Total Cholesterol 245H, LDL Cholesterol 129H, Non-HDL Cholesterol (LDL + VLDL) 206, Total HDL Cholesterol 39L, Cholesterol/HDL Ratio 6.282H, Procalcitonin 0.49 06/12/21 11:56: Bedside Glucose (Misc Panel) 251H 06/12/21 16:26: Bedside Glucose (Misc Panel) 277H CBC/BMP Laboratory Tests 06/12/21 05:41 Microbiology Microbiology 06/10/21 Respiratory Virus Panel (PCR) (MARGARETTE) - Final, Complete 06/10/21 Blood Culture - Preliminary, Resulted No growth after 24 hours . All specim... 06/10/21 Blood Culture - Preliminary, Resulted No growth after 24 hours . All specim... Allergies Coded Allergies: No Known Allergies (Unverified , 06/10/21) Home Medications Scheduled Ofloxacin (Ocuflox) 0.3% 5ML Drops, 1 DROP OU TID, (Reported) STARTED 06-06-21 X 7 DAYS Rivaroxaban (Xarelto) 15 Mg Tablet, 15 MG PO BID for 21 Days, #42 Scheduled PRN Ibuprofen (Ibuprofen) 600 Mg Tablet, 600 MG PO Q6H PRN for BACK PAIN, (Reported) TOMÁS WITT MD Jun 12, 2021 20:14
[2021-06-12] MEDS: LEVEMIR (INSULIN DETEMIR) 1 UNITS/0.01ML SC SCH (20:57)
[2021-06-12 22:00] VITALS: BP 135/90
[2021-06-13] VITALS (8 sets, daily range): BP systolic 132–177; BP diastolic 64–92; O2SAT 98
[2021-06-13] MEDS: IPRATROPIUM 0.5MG/ALBUTEROL 2.5MG INH SOL UD 3ML (DUONEB) NEB SCH ×3 (00:55→13:02)
[2021-06-13] MEDS: LevoFLOXacin IV 750 MG in IV 1 EA IV SCH (02:14)
[2021-06-13] MEDS: IBUPROFEN 600MG TAB PO PRN ×2 (02:19→12:57)
[2021-06-13 05:49] LABS: BASO % 0.5 % (0.0-1.0); EOS # 0.1 10^3/uL (0.0-0.5); EOS % 0.8 % (0.0-3.0); HEMATOCRIT 38.3 % (42.0-52.0); HEMOGLOBIN 12.4 g/dl (13.5-17.5); LYMPH % 10.9 % (24.0-44.0); MEAN CORPUSCULAR HEMOGLOBIN 28.9 pg (27.0-33.0); MEAN CORPUSCULAR HGB CONC 32.4 g/dl (32.0-36.5); MEAN CORPUSCULAR VOLUME 89.3 fl (80.0-96.0); MONO # 0.7 10^3/uL (0.0-0.8); MONO % 8.4 % (2.0-8.0); NEUTROPHILS # 6.9 10^3/uL (1.5-8.5); NEUTROPHILS % 78.9 % (36.0-66.0); PLATELET COUNT, AUTOMATED 228 10^3/uL (150-450); RED BLOOD COUNT 4.29 10^6/uL (4.30-6.10); WHITE BLOOD COUNT 8.7 10^3/uL (4.0-10.0)
[2021-06-13 06:19] LABS: BLOOD UREA NITROGEN 16 MG/DL (7-18); CALCIUM LEVEL 9.3 MG/DL (8.5-10.1); CARBON DIOXIDE LEVEL 29 MEQ/L (21-32); CHLORIDE LEVEL 102 MEQ/L (98-107); CREATININE FOR GFR 0.87 MG/DL (0.70-1.30); GLOMERULAR FILTRATION RATE > 60.0 (>60); GLUCOSE, FASTING 185 MG/DL (70-100); POTASSIUM SERUM 4.5 MEQ/L (3.5-5.1); SODIUM LEVEL 138 MEQ/L (136-145)
[2021-06-13] MEDS: LACTOBACILLUS ACIDOPHILUS CAP (BACID) PO SCH (08:10)
[2021-06-13] MEDS: HumaLOG INSULIN (NovoLOG) PER UNIT SC SCH ×2 (08:10→12:56)
[2021-06-13] MEDS: OFLOXACIN 0.3 % (OCUFLOX) OPTH SOL 5ML OU SCH (08:11)
[2021-06-13] MEDS: ENOXAPARIN 100MG/1ML SYRINGE (J1650 PER 10MG) SC SCH (08:11)
[2021-06-13] MEDS: ACETAMINOPHEN 500 MG TAB PO SCH ×2 (08:11→15:25)
[2021-06-13] MEDS ORDERED: BLOO-76 MC (08:46)
[2021-06-13] MEDS ORDERED: LANC1COM MC (08:46)
[2021-06-13] MEDS ORDERED: ALCO1MED8 XX (08:46)
[2021-06-13] MEDS ORDERED: LOVE1INJ SC (08:46)
[2021-06-13] MEDS ORDERED: LEVE1INJ5 SC (08:46)
[2021-06-13] MEDS ORDERED: LEVO750T13 PO (09:28)
--- NOTE | 2021-06-13 14:37 | IPN ---
PROGRESS NOTE DATE: 06/13/2021 SUBJECTIVE: The patient is afebrile, no cough, chills, shortness of breath. The patient denies any paroxysmal nocturnal dyspnea, denies any dyspnea on exertion, orthopnea. The patient is saturating 96-98% on one liter nasal cannula after walking three times around the floor yesterday. He remains tachycardic with exertion with sinus tachycardia, ventricular rate of 105 to 117. The patient otherwise denies any hemoptysis, lightheadedness or dizziness. Temperature 98.7, pulse 98, respiratory 20, blood pressure 134/89, 94% one liter nasal cannula. OBJECTIVE: General: Awake, alert and oriented to person, place and time, answering questions appropriately. No distress, use of respiratory accessory muscles, pallor, icterus, jaundice or cyanosis. HEENT: No JVD, thyromegaly, cervical lymphadenopathy. Lungs: Clear to auscultation, no wheezing or rales. Air entry is equal. No adventitious breath sounds. Inspiratory, expiratory ratio of 1:2. Heart: S1, S2, sinus tachycardia. Abdomen: Soft, nontender, nondistended. Positive bowel sounds. Extremities: No cyanosis or clubbing. No pitting edema but edematous bilateral lower extremities. LABORATORY DATA: White count 8.7, hemoglobin 12, hematocrit 38, platelet count 228. Sodium 138, potassium 4.5, chloride 102, bicarb 29, BUN 16, creatinine 0.87, glucose of 185. Antiphospholipid antibody syndrome still pending. V/Q scan: High probability, pulmonary embolism. ASSESSMENT AND PLAN: This is a 31-year-old male with prior history of PE, DVT in the setting of left ankle surgery, completed six months of Eliquis which has been stopped about one month ago and now presents with cough, shortness of breath and pleuritic chest pain, found to have bilateral pulmonary embolism and nonocclusive thrombus in the left femoral and distal fem-popliteal vein. Patient has been started on Lovenox. Antiphospholipid syndrome panel has been sent. Automatic Data Processing Planner, Dr. Todd has been consulted and recommended checking for confirmatory tests of the hexagonal phospholipid. The patient has hypercoagulable workup sent and is significant for presence of antiphospholipid antibody with high DRVVT although the confirmatory test for antiphospholipid antibody in the form of hexagonal phospholipid is pending. According to Dr. Todd, "if he is confirmed to have the presence of antiphospholipid antibodies, then Eliquis or Xarelto would not be a good choice for anticoagulation and Coumadin is the best way to go or Lovenox 10 mg subcu b.i.d. which may not be feasible on a long-term basis. The patient has been on Eliquis for six months without any evidence of DVT during that time. 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 Once antiphospholipid antibody comes back negative, he may be restarted on Eliquis on a long-term basis. The patient is to follow up with the implementation project coordinator within one week of his hospital discharge. CURRENT ISSUES: 1. Recurrent PE/DVT. Patient is currently on Lovenox 1 mg per kilogram. Current weight is 86.5 kilograms. He is currently on 90 mg subcu q. 12 hourly. Supplemental oxygen of one liter has been given with saturations ranging from 94 to 98% on one liter nasal cannula. He remains tachycardic and has been advised that if he is flying back home, he will need to have a wheelchair and not carry his luggage due to risk of tachycardia and worsening hypoxia with exertion. At this time, patient is anxious to be discharged from the hospital. The safest management would be to discharge him on Lovenox 1 mg per kilogram subcu q.12 hourly with current weight of 86.5 kilos at 90 mg subcu q.12 hourly until the antiphospholipid antibody panel result is available. Patient is to have O2 sat checked on room air with ambulation and will be given one liter nasal cannula continuously if O2 sats are less than 88% on room air with ambulation. He was advised to have a wheelchair, supplemental oxygen and a zhang to handle his luggage when he returns home to [place] at the airport. He is to have at least 1-2 weeks off from work until his implementation project coordinator can decide on oral anticoagulant or to continue on subcutaneous Lovenox injection and until he is hemodynamically stable off the oxygen due to the rigorous nature of his job. With exertion, patient is at risk of persistent tachycardia, hypoxia and possible syncopal episode due to bilateral PE despite not having saddle emboli on his CT, chest. 2. New onset type 2 diabetes. He feels comfortable with self-administration of his Levemir insulin as supervised by the registered nurse at [facility]. He is to continue on 15 units subcu q.p.m. Glucometer lancets, test strips have been sent to his pharmacist. He will need an ophthalmology referral and check for urine microalbumin by his primary care physician and monofilament testing as outpatient. 3. Community acquired pneumonia. Continue on Levaquin at 750 daily for a total of seven days. DISPOSITION: PFS has been consulted to arrange for medication preauthorization for Lovenox injections as well as insulin, supplemental oxygen to be arranged by RN if O2 sat is less than 88%. If these can be arranged for today, he may be discharged home. KIP
[2021-06-13] MEDS ORDERED: METOCLOPRAMIDE INJ 10MG/2ML VIAL (J2765 PER 1) IV ONE (14:45)
[2021-06-13] MEDS ORDERED: ACETAMINOPHEN 500 MG TAB PO ONE (14:45)
[2021-06-13] MEDS ORDERED: ATENOLOL 12.5MG PER 1/2 TABLET PO ONE (14:45)
[2021-06-13] MEDS ORDERED: RIZATRIPTAN BENZOATE 10 MG TAB PO ONE (16:00)
[2021-06-13] MEDS ORDERED: ENOXAPARIN 100MG/1ML SYRINGE (J1650 PER 10MG) SC SCH (21:00)
[2021-06-15 15:11] LABS: HEXAGONAL PHASE PHOSPHOLIPID 0 sec (0-11)
[2021-06-15 17:07] LABS: ANTI THROMBIN 3 ANTIGEN IMMUNO 103 % (72-124); ANTI THROMBIN 3 FUNCT ACTIVITY 137 % (75-135); CARDIOLIPIN IGA ANTIBODY <9 APL U/mL (0-11); CARDIOLIPIN IGG ANTIBODY <9 GPL U/mL (0-14); CARDIOLIPIN IGM ANTIBODY <9 MPL U/mL (0-12); PHOSPHOLIPIDS LEVEL 286 mg/dL (150-250); PROTEIN C FUNCTIONAL ACTIVITY 172 % (73-180); PROTEIN S FUNCTIONAL ACTIVITY 73 % (63-140)
--- NOTE | 2021-06-17 11:13 | ECHO ---
ECHOCARDIOGRAM DATE OF PROCEDURE: 06/11/2021 Age: Gender: Male Height: 175 cm Weight: 84 kg REFERRING INDIVIDUAL: Elle Laura, Nurse Practitioner. INDICATION: Dyspnea. MEASUREMENTS: 2D Measurements: Left atrium 3.6 cm Intraventricular septum 1.03 cm Posterior wall 0.93 cm Left ventricle diastole 4.5 cm Aortic root 2.7 cm Left atrial volume index 22 Inferior vena cava 1.6 cm Doppler Measurements: No aortic regurgitation or stenosis Aortic valve velocity 145 cm/sec LVOT velocity 117 cm/sec LVOT VTI 21.0 cm No mitral regurgitation No mitral stenosis Mitral E velocity 90.0 cm/sec Mitral A velocity 61.3 cm/sec Mitral deceleration time 145 msec Trace tricuspid regurgitation Trace pulmonic regurgitation Pulmonary artery acceleration time 63 msec? MITRAL ANNULAR TISSUE DOPPLER: E prime septal 8.5 cm/sec E prime lateral 7.9 cm/sec DESCRIPTION: Rhythm was sinus. Image quality was good. No pericardial effusion. This was a 2D, M-mode, color flow Doppler and pulse wave Doppler examination and included mitral annular tissue Doppler. CONCLUSIONS: 1. Normal left ventricle internal dimensions and wall thickness. Normal regional left ventricular (LV) wall motion and wall thickening. Normal LV systolic function. Left ventricular ejection fraction (LVEF) 60-65% by visual estimate. Normal LV diastolic function. 2. Abbreviated pulmonary artery acceleration time suggestive of possible moderate pulmonary hypertension. Normal right ventricle size and systolic function. 3. Otherwise normal appearing echocardiogram Doppler findings.
--- NOTE | 2021-06-27 13:20 | DS.PDOC ---
Discharge Summary General Date of Admission Jun 11, 2021 at 00:08 Date of Discharge 06/13/21 Discharge Summary DISCHARGE DIAGNOSIS: Recurrent PE DVT New onset type 2 diabetes mellitus Community-acquired pneumonia DISCHARGE MEDICATIONS: See below DISCHARGE INSTRUCTIONS: Per data integrity specialist oncologist Dr. WITT, patient is to follow-up with his data integrity specialist who will review the antiphospholipid antibody panel and decide if p atient should be on direct acting oral anticoagulants. Until that time he is to continue with Lovenox 1 mg/kg subcu every 12 hours. Primary care physician appointment within 1 week of hospital discharge. Immediate follow-up with his data integrity specialist within 1 week of hospital discharge. CONSULTANTS DURING THIS ADMISSION: [employer] OFF[employer] ONCOLOGIST-Dr. Sam FLEMING HOSPITAL COURSE: This is a 31-year-old male with prior history of PE, DVT in the setting of left ankle surgery, completed six months of Eliquis which has been stopped about one month ago and now presents with cough, shortness of breath and pleuritic chest pain, found to have bilateral pulmonary embolism and nonocclusive thrombus in the left femoral and distal fem-popliteal vein. Patient has been started on Lovenox. Antiphospholipid syndrome panel has been sent. Tag Marker, Dr. Todd has been consulted and recommended checking for confirmatory tests of the hexagonal phospholipid. The patient has hypercoagulable workup sent and is significant for presence of antiphospholipid antibody with high DRVVT although the confirmatory test for antiphospholipid antibody in the form of hexagonal phospholipid is pending. According to Dr. Todd, "if he is confirmed to have the presence of antiphospholipid antibodies, then Eliquis or Xarelto would not be a good choice for anticoagulation and Coumadin is the best way to go or Lovenox 10 mg subcu b.i.d. which may not be feasible on a long-term basis. The patient has been on Eliquis for six months without any evidence of DVT during that time. 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 Once antiphospholipid antibody comes back negative, he may be restarted on Eliquis on a long-term basis. The patient is to follow up with the data integrity specialist within one week of his hospital discharge. 1. Recurrent PE/DVT. Patient is currently on Lovenox 1 mg per kilogram. Current weight is 86.5 kilograms. He is currently on 90 mg subcu q. 12 hourly. Supplemental oxygen of one liter has been given with saturations ranging from 94 to 98% on one liter nasal cannula. He remains tachycardic and has been advised that if he is flying back home, he will need to have a wheelchair and not carry his luggage due to risk of tachycardia and worsening hypoxia with exertion. At this time, patient is anxious to be discharged from the hospital. The safest management would be to discharge him on Lovenox 1 mg per kilogram subcu q.12 hourly with current weight of 86.5 kilos at 90 mg subcu q.12 hourly until the antiphospholipid antibody panel result is available. Patient is to have O2 sat checked on room air with ambulation and will be given one liter nasal cannula continuously if O2 sats are less than 88% on room air with ambulation. He was advised to have a wheelchair, supplemental oxygen and a zhang to handle his luggage when he returns home to [place] at the airport. He is to have at least 1-2 weeks off from work until his data integrity specialist can decide on oral anticoagulant or to continue on subcutaneous Lovenox injection and until he is hemodynamically stable off the oxygen due to the rigorous nature of his job. With exertion, patient is at risk of persistent tachycardia, hypoxia and possible syncopal episode due to bilateral PE despite not having saddle emboli on his CT, chest. 2. New onset type 2 diabetes. He feels comfortable with self-administration of his Levemir insulin as supervised by the registered nurse at [facility]. He is to continue on 15 units subcu q.p.m. Glucometer lancets, test strips have been sent to his pharmacist. He will need an ophthalmology referral and check for urine microalbumin by his primary care physician and monofilament testing as outpatient. 3. Community acquired pneumonia. Continue on Levaquin at 750 daily for a total of seven days. DISCHARGE PHYSICAL EXAMINATION: VITAL SIGNS: SEE BELOW General: Awake, alert and oriented to person, place and time, answering questions appropriately. No distress, use of respiratory accessory muscles, pallor, icterus, jaundice or cyanosis. HEENT: No JVD, thyromegaly, cervical lymphadenopathy. Lungs: Clear to auscultation, no wheezing or rales. Air entry is equal. No adventitious breath sounds. Inspiratory, expiratory ratio of 1:2. Heart: S1, S2, sinus tachycardia. Abdomen: Soft, nontender, nondistended. Positive bowel sounds. Extremities: No cyanosis or clubbing. No pitting edema but edematous bilateral lower extremities. DISCHARGE LABORATORY DATA: White count 8.7, hemoglobin 12, hematocrit 38, platelet count 228. Sodium 138, potassium 4.5, chloride 102, bicarb 29, BUN 16, creatinine 0.87, glucose of 185. Antiphospholipid antibody syndrome still pending. IMAGING STUDIES: SEE CHART V/Q scan: High probability, pulmonary embolism. MICROBIOLOGY: SEE CHART TIME SPENT ON DISCHARGE: 30 MINUTES Discharge Medications Scheduled Enoxaparin Sodium (Lovenox) 40 Mg/0.4 Ml Syringe, 90 MG SC Q12H Insulin Detemir (Levemir Flextouch) 100 Unit/1 Ml Insuln.pen, 15 UNIT SC QPM Levofloxacin (Levofloxacin) 750 Mg Tablet, 750 MG PO DAILY Allergies Coded Allergies: No Known Allergies (Unverified , 06/10/21) GERMÁN RODGERS MD Jun 27, 2021 13:01
== END 2021-06-13 18:50 | disposition home or self-care (01) | DRG 139 ==
LOC: M ED 17:25 → OBSVTOIN 06-11 00:08 → M ED INP 06-11 00:08 → ENRESERV 06-11 12:55 → M MSPAV 06-11 15:34
PROVIDERS: ADMIT Internal Medicine; ATTEND General Practice
DX: J18.9 Pneumonia, unspecified organism (principal); I26.99 Other pulmonary embolism without acute cor pulmonale; I82.412 Acute embolism and thrombosis of left femoral vein; I82.432 Acute embolism and thrombosis of left popliteal vein; R16.1 Splenomegaly, not elsewhere classified; R74.01 Elevation of levels of liver transaminase levels; E11.9 Type 2 diabetes mellitus without complications; R00.0 Tachycardia, unspecified; Z79.01 Long term (current) use of anticoagulants; Z79.899 Other long term (current) drug therapy